=== PATIENT | male | born 1970 | race Caucasian/White ===

== ENCOUNTER 2025-01-12 23:52 | Emergency (ER) | payer BC, SELFPAY ==
[2025-01-12 23:55] VITALS: BP 140/90; PULSE 85; O2SAT 98; BMI 28.7
[2025-01-13 00:02] VITALS: BP 135/75; PULSE 82; RESP 19; TEMP 36.7; O2SAT 95
[2025-01-13 00:19] LABS: MANUAL DIFF FLAG NO
[2025-01-13 00:23] LABS: Hematocrit 42.6 % (42.0-52.0); Hemoglobin 14.5 g/dl (14.0-18.0); Imm Gran Abs Auto 0.03 X10*3/uL (0.00-0.03); Imm Gran Pct Auto 0.4 % (0.0-0.4); Lymphocytes Absolute Auto 2.2 X10*3/uL (1.2-4.9); Mean Corpuscular HGB Conc 34.0 g/dl (31.0-36.0); Mean Corpuscular Hemoglobin 28.9 pg (27.0-33.0); Mean Corpuscular Volume 85.0 fL (80.0-98.0); NRBC Abs Auto 0.000 X10*3/uL (0.0-0.012); NRBC Pct Auto 0.0 /100WBC (0.0-0.2); Platelet Count 243 X10*3/uL (160-400); Red Blood Count 5.01 X10*6/uL (4.60-5.80); White Blood Count 7.1 X10*3/uL (4.8-10.8)
[2025-01-13 00:36] LABS: Alanine Aminotransferase 43 U/L (0-40); Albumin Level 4.2 g/dL (3.5-5.0); Alkaline Phosphatase 70 U/L (39-117); Anion Gap 14 (12-20); Aspartate Amino Transferase 45 U/L (5-37); Blood Urea Nitrogen 13 mg/dL (9-16); Calcium 9.3 mg/dL (8.4-10.2); Carbon Dioxide 27 mmol/L (22-29); Chloride 103 mmol/L (96-108); Creatinine Clr Calc Pharmacy 128.5; Estimated Glomerular Filt Rate > 60; Potassium 3.7 mmol/L (3.3-5.1); Sodium 140 mmol/L (135-145); Total Protein 6.9 g/dL (6.5-8.0)
--- OUTSIDE RECORDS SUMMARY | 2025-01-13 00:50 | XMS_ITS | Clinical Summary ---
Author Organization 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 6.7 g 1 5 Active ALPRAZolam (XANAX) 0.5 mg tablet Take 1 tablet (0.5 mg total) by mouth 1 (one) time each day if needed for anxiety. Max Daily Amount: 0.5 mg 10 tablet 5 Active simvastatin (ZOCOR) 20 mg tabletIndications:M ixed hyperlipidemia TAKE 1 TABLET BY MOUTH EVERYDAY AT BEDTIME 90 tablet 1 5 Active Breo Ellipta 200-25 mcg/dose inhaler INHALE 1 PUFF INTO THE LUNGS DAILY FOR 30 DAYS. 60 each 11 5 Active Active Problems Problem Noted Date Diagnosed Date Abdominal bloating 02/19/2024 Abdominal pain 02/19/2024 Change in bowel habits 02/19/2024 Colon polyp 02/19/2024 Epigastric pain 02/19/2024 Hemangioma of liver 02/19/2024 Hemorrhoids 02/19/2024 Rectal discharge 02/19/2024 Tubular adenoma of colon 02/19/2024 Abnormal echocardiogram 02/16/2020 SOB (shortness of breath) on exertion 02/16/2020 Overview (02/19/2024): Last Assessment & Plan: Shortness of breath has improved after initiation of medicine for COPD. Most likely his SOB is related to his lung problem. The echocardiogram shows subtle abnormality but he had no symptoms with good level of exercise EKG stress test. We will repeat exercise echocardiogram in 6 months. Anxiety 12/09/2015 GERD (gastroesophageal reflux disease) 6 COPD (chronic obstructive pu lmonary disease) ([facility] V24, [facility] V28) 10/05/2015 Mixed hyperlipidemia 08/28/2012 Overview (02/19/2024): Last Assessment & Plan: His LDL was slightly on higher side and he is only on low-dose of statin. I will increase simvastatin to 20 mg daily. Backache 11/06/2006 Overview (02/19/2024): IMO update Right bundle branch block 11/06/2006 Overview (02/19/2024): incomplete right bundle branch block Encounters Date Type Department Care Team Description 12/01/2024 Telephone Outpatient Rehabilitation - [address] [phone] [place], PT 11/25/2024 2:30 PM EDT Treatment Outpatient Rehabilitation - [address] [phone] [place] Fox, PT Vertigo (Primary Dx) 11/23/2024 1:00 PM EDT Ancillary Procedure [facility] [address] [place] [address] Palpitation 11/03/2024 12:00 PM EDT Treatment Outpatient [address] [phone] [place], PT Neck muscle spasm (Primary Dx) 11/02/2024 11:30 AM EDT Evaluation [address] [phone] [place] Fox, PT Vertigo (Primary Dx); Neck muscle spasm from Last 3 Months Immunizations Immunization Administration Dates Next Due Influenza trivalent, 0.5mL, preservative free (Fluarix; FluLaval; Fluzone) ages 6mo and older (Afluria) 3 years and older 12/09/2015,01/05/2008 Pfizer SARS-CoV-2 COVID-19, mRNA, LNP-S, preservative free 07/01/2020,06/09/2020 Tdap Tetanus diptheria acell ular pertussis (Boostrix; Adacel) 7yo and older 02/09/2022,08/22/2011 Surgical History Surgery Date Site/Laterality Comments MULTIPLE TOOTH EXTRACTIONS PROCEDURE: HISTORICAL DENTAL EXTRACTION BACK SURGERY 1995 PROCEDURE: HISTORICAL BACK SURGERY; COMMENT: [id number] HERNIA REPAIR 2007 Left PROCEDURE: HISTORICAL HERNIA REPAIR/ING ESOPHAGOGASTRODUODENOSCOPY 12/05/2015 PROCEDURE: RI ESOPHAGOGASTRODUODENOSCOPY TRANSORAL DIAGNOSTIC; COMMENT: normal COLONOSCOPY 12/07/2015 PROCEDURE: HISTORICAL COLONOSCOPY; COMMENT: adenoma; repeat in 5 years COLONOSCOPY 07/05/2021 PROCEDURE: HISTORICAL COLONOSCOPY; COMMENT: polyp - removed, not retrieved ESOPHAGOGASTRODUODENOSCOPY 07/05/2021 PROCEDURE: RI EGD TRANSORAL BIOPSY SINGLE/MULTIPLE; COMMENT: normal including biopsy Medical History Medical History Date Comments Backache, unspecified 11/06/2006 DX:Backach e, unspecified Right bundle branch block 11/06/2006 DX:Rig ht bundle branch block; COMMENT: incomplete right bundle branch block COPD (chronic obstructive pu lmonary disease) ([facility] V24, [facility] V28) 10/05/2015 DX:COPD (chronic o bstructive pulmonary disease) ([facility]) GERD (gastroesophageal reflux disease) 11/25/2015 DX:GERD (gastroesophageal reflux disease) Epigastric pain DX:Epigastric pa in Abdominal pain DX:Abdominal ludwig n Abdominal bloating DX:Abdominal bloating Change in bowel habits DX:Change in bowel habits Rectal discharge DX:Rectal disch arge Tubular adenoma of colon DX:Tubu lar adenoma of colon Hemangioma of liver DX:Hemangiom a of liver Anxiety state DX:Anxiety state Depressive disorder DX:Depressiv e disorder Hyperlipidemia DX:Hyperlipidemi a Hemorrhoids DX:Hemorrhoids Colon polyp DX:Colon polyp Family History Medical History Relation Name Comments Heart attack Father at age 64 COPD Maternal Grandfather Other: heart disease Maternal Grandfather Other: heart disease Maternal Grandmother Arthritis Mother Bilateral hip r eplacements COPD Mother Heart attack Paternal Grandmother age 40- 50. Relation Name Status Comments Brother 1 Alive Brother 2 Alive Brother 3 Alive Brother 4 Alive Father Maternal Grandfather Maternal Grandmother Mother Alive Paternal Grandfather Paternal Grandmother Social History Tobacco Use Types Packs/Day Years Used Date Smoking Tobacco: Former Cigarettes Q uit: 09/20/2015 Smokeless Tobacco: Former Quit: 09/15/2015 Alcohol Use Standard Drinks/Week Comments Yes 0 (1 standard drink = 0.6 oz pur e alcohol) Sex and Gender Information Value Date Recorded Sex Assigned at Male 05/11/2024 10:30 AM EST Legal Sex Male 11:17 PM EST Gender Identity Male 05/11/2024 10:30 AM EST Sexual Orientation Straight 05/11/2024 10 :30 AM EST Obstetrics History Last Filed Vital Signs Vital Sign Reading Time Taken Comments Blood Pressure 120/84 10/05/2024 10:23 AM EDT Pulse 86 10/05/2024 10:23 AM EDT Temperature 35.9 C (96.6 F) 10/05/2024 10:23 AM EDT Respiratory Rate 16 10/05/2024 10:23 AM EDT Oxygen Saturation 96% 10/05/2024 10:23 AM EDT Inhaled Oxygen Concentration - - Weight 98.7 kg (217 lb 9.3 oz) 10/05/2024 10:23 AM EDT Height 182.9 cm (6') 10/05/2024 10:23 AM EDT Body Mass Index 29.51 10/05/2024 10:23 AM EDT Plan of Treatment Upcoming Encounters Date Type Department Care Team (Late st Contact Info) Description 03/22/2025 4:00 PM EST Office Visit Adult Medicine [facility] [address] [place] [phone] Amparo Cano NP [address] [place] [address] 07/30/2025 8:15 AM EDT Office Visit Pulmonology - [place] [address] [place] [address] Freddie Mg MD [address] [place] [phone] Health Maintenance Due Date Last Done Comments Hepatitis B Vaccines (1 of 3 - 19+ 3-dose series) 1989 Pneumococcal Vaccine: 50+ Years (1 of 2 - PCV) 1989 RSV Immunization Adult Patients (1 - Risk 50-74 years 1-dose series) 2020 Zoster Vaccines (1 of 2) 2020 HIV Screening 02/17/2022 Social Influencers of Health Screening 02/17/2022 Depression Screening 03/11/2024 COVID-19 Vaccine (3 - 2024-2 6 season) 2024 07/01/2020, 06/09/2020 Influenza Vaccine (#1) 2024 6, 01/05/2008 Colorectal Cancer Screening: Colonoscopy 07/05/2026 07/05/2021 Cholesterol Screening (Lipid Panel) 07/07/2028 07/08/2023, 07/08/2023 DTaP,Tdap,and Td Vaccines (3 - Td or Tdap) 02/10/2032 02/09/2022, 08/22/2011 Hepatitis C Screening Completed 02/09/2022 HIB Vaccines Aged Out No longer eligi ble based on patient's age to complete this topic HPV Vaccines Aged Out No longer eligi ble based on patient's age to complete this topic Hepatitis A Vaccines Aged Out No long er eligible based on patient's age to complete this topic IPV Vaccines Aged Out No longer eligi ble based on patient's age to complete this topic MMR Vaccines Aged Out No longer eligi ble based on patient's age to complete this topic Meningococcal ACWY Vaccine Aged Out N o longer eligible based on patient's age to complete this topic Meningococcal B Vaccine Aged Out No l onger eligible based on patient's age to complete this topic RSV Immunization Patients Under 20 months Aged Out No longer eligible b ased on patient's age to complete this topic Varicella Vaccines Aged Out No longer eligible based on patient's age to complete this topic Procedures Procedure Name Priority Date/Time Associated Diagnosis Comments CARDIAC HOLTER MONITOR (REPORT GENERATED IN HOUSE) Routine 11/23/2024 1:01 PM EDT Palpitation LIPID PANEL Routine 07/08/2023 HEPATITIS C SCREENING Routine 02/09/2022 COLONOSCOPY Routine 07/05/2021 from Last 3 Months or Most Recently Relevant to Health Maintenance Results * CARDIAC HOLTER MONITOR (REPORT GENERATED IN HOUSE) (11/23/2024 1:01 PM EDT) Anatomical Region Laterality Modality Cardiac Diagnost ic Narrative 11/26/2024 11:12 AM EDT [facility] DI[facility]ING DEPARTMENT [address] [place] [address] TEL: FAX: Type of test: 48 hour Holter Monitor Date of test: 11/23/24 Ordering provider: Amparo Cano NP Reason for Test: Palpitations 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 2: Heart rate range was 49- 141 bpm with an average of 83 bpm. Total time in Sinus Tachycardia was 10 hrs 13 mins. 3: Rare PACs and PVCs. 4: No pauses noted. Longest R-R 1.3 sec. 5: Diary returned with no symptoms noted. Impression: Normal sinus rhythm with an average heart rate of 83 bpm. There were prolonged periods in sinus tachycardia but no arrhythmias. us Amparo Cano NP [facility] PROCEDURE S Final Result * Lipid panel (07/08/2023) [facility] LDL/HDL Ratio 3 0 - 4 Triglycerides 139 0 - 150 mg/dL Cholesterol 183 0 - 200 mg/dL HDL 62 >=40 mg/dL LDL Cholesterol 94 0 - 100 mg/dL Blood Venous blood specimen / Unknown [facility] Provider LAB BLOOD ORDERABLES Josselin l Result * Hepatitis C Screening (02/09/2022) [facility] Hepatitis C Screening abstracted [facility] Provider HEALTH MAINTENANCE Final Result * Colonoscopy (07/05/2021) [facility] Colonoscopy abnormal, abstracted Anatomical Region Laterality Modality Other [facility] Provider HEALTH MAINTENANCE Final Result from Last 3 Months or Most Recently Relevant to Health Maintenance Insurance [facility] Care Teams Leases And Land Supervisor Relationship Specialty Start Date End Date Timbo Hanley MD [address] [place] [phone] PCP - General Internal Medicine 12/23/19
--- NOTE | 2025-01-13 01:36 | ED_ITS ---
HPI - General Adult General Chief complaint: Back Pain/Injury Stated complaint: back pain Time Seen by Provider: 01/12/25 23:58 Source: patient, RN notes reviewed and old records reviewed Mode of arrival: EMS Limitations: no limitations History of Present Illness ED Provider: Candelario AZUL narrative: 54-year-old male presents for evaluation of lower back pain. He reports a history of chronic back pain due to an injury that happened when he was 20 years old He reports having had surgeries of the time about 30 years ago. He has a history of sciatica that flares up every few years. He had some minor discomfort today while he was trying on pants to donate with did not fit him. He he reports falling asleep on the couch and a couple hours later woke up with severe back pain on the right side pain The pain does not radiate. He denies any falls or trauma. He denies any numbness or tingling pain Denies any weakness pain His pain is worse when he is walking and reports that he is barely able to walk without shuffling. He denies any difficulty urinating. In fact when he woke up he went to the bathroom before going back to his bed. However while he was standing and walking he had severe pain that caused him to feel lightheaded with nausea and he felt like he was going to pass out but did not pass out His pain is 8/10. He would not take anything for his pain today Related Data Previous Rx's ?Medication ?Instructions ?Recorded cyclobenzaprine 10 mg tablet 10 mg PO TID PRN muscle s pasm #20 01/13/25 tabs dexamethasone 4 mg tablet 4 mg PO BID #6 tabs 01/13/25 ketorolac 10 mg tablet 10 mg PO Q8H PRN pain #9 tab s 01/13/25 omeprazole 20 mg capsule,delayed 20 mg PO DAILY #14 ca ps 01/13/25 release Allergies Allergy/AdvReac Type Severity Reaction Status Date / Time Penicillins Allergy Rash Verified 01/13/25 00:08 Review of Systems 2 Constitutional: Constitutional: Denies body ache(s), Denies chills, Denies fever(s) and Denies headache(s) Eyes: Eyes: Denies blurry vision ENT: Denies vertigo, Denies dizziness, Denies headache(s) and Denies neck pain Cardiovascular: Cardiovascular: Denies chest pain, Reports lightheadedness, Denies dyspnea and Denies dyspnea on exertion Respiratory: Respiratory: Denies cough, Denies dyspnea and Denies dyspnea on exertion Gastrointestinal: Gastrointestinal: Denies abdominal pain, Denies nausea and Denies vomiting Musculoskeletal: Musculoskeletal: Reports back pain, Denies arthralgias, Denies joint swelling, Reports limited range of motion, Denies neck pain, Denies numbness, Denies radiating pain into limb, Reports stiffness and Denies tingling Integumentary/Breasts: Skin/Breast: Denies rash Neurologic: Denies vertigo, Denies dizziness, Denies headache(s), Denies numbness and Denies tingling Psychiatric: Psychiatric: Denies anxiety PMFSH Social History Social History Alcohol intake: current Alcohol intake frequency: holidays/special occasions only Alcohol type: beer Smoked in Last 30 Days: No Use of substances other than those prescribed or required for medical reasons: Yes Substance Use Type: Marijuana Substance Use Frequency: Occasionally Last Used Substance: Days (ago) Advance Directives: No Advance Directives Information Provided: Yes Physical Exam ED Vital Signs: Vital Signs - 24 hr 01/13/25 00:02 Temperature 98.1 F Pulse Rate 82 Respiratory Rate 19 Blood Pressure 135/75 Pulse Oximetry 95 Oxygen Delivery Method Room Air BMI result Body Mass Index 28.7 Const General: healthy appearing, comfortable, no acute distress, alert and awake Nutritional Appearance: well nourished Orientation/consciousness: patient oriented x3 HENMT Head: Yes normocephalic and Yes atraumatic Eyes Eyelids: Yes eyelids normal Conjunctivae: conjunctivae normal Sclerae: sclerae normal Corneas: corneas normal Pupils: Equal, round and reactive pupils present EOM: EOMs intact bilaterally Neck Neck: Yes full ROM Resp Effort & Inspection: normal respiratory effort, able to speak in complete sentences and not labored Cardio Rate: regular rate Rhythm: regular rhythm GI Inspection: No distended Palpation (GI): Soft to palpation, not firm, nontender, no guarding and not rigid Back/Spine/Pelvis Other: The patient does not have any vertebral tenderness to the lumbar or lumbosacral region. He has tenderness just lateral to the right lumbar vertebrae. Straight leg raise negative bilaterally. Skin General skin exam: elasticity normal Neuro General: patient oriented x3 Cranial nerves: Yes Equal, round and reactive pupils present and Yes Bilaterally intact EOM present Cognition (Neuro): normal cognition Motor exam (neuro): 5/5 motor strength present throughout Deep tendon reflexes (DTR's): Left brachioradialis reflex intensity grade: 1+ and Right patellar reflex intensity grade: 1+ Coordination: [id number] test normal Extrem Other: Moving all extremities well without any obvious deformities Medications Administered Discontinued Medications Generic Name Dose Route Start Last Admin Trade Name Lionelq PRN Reason Stop Dose Admin Dexamethasone Sodium Phosphate 4 mg 01/13/25 00:59 01/13/25 01:07 Dexamethasone Sod Phosphate 4 Mg/Ml Vial IVPUSH 01/13/25 01:00 4 mg ONCE ONE Administration Ketorolac Tromethamine 30 mg 01/13/25 00:59 01/13/25 01:07 Ketorolac Tromethamine 30 Mg/Ml Vial IVPUSH 01/13/25 01:00 30 mg ONCE ONE Administration Medical Decision Making Medical Decision Making [facility] Narrative: 54-year-old male presents for evaluation of acute on chronic back pain. He reports having gradually worsening back pain today. His pain was worse after sleeping on it for a few hours. He is able to ambulate but has pain while doing so. He has no weakness, no paresthesias, numbness or tingling. He is able to urinate no bowel movements without any difficulty. I have a very low suspicion for cauda equina syndrome. There was no trauma to warrant x-ray imaging. We will treat the patient with Toradol and dexamethasone and re-evaluate. He has no symptoms, his pain is not consistent with obstructive uropathy. He has no abdominal pain or tenderness on exam to suggest a GI cause of his pain. Differential Diagnosis Differential Diagnoses: The differential diagnosis associated with the presentation includes Radiculopathy Sciatica Acute and chronic back pain Disc herniation Lab Data [facility] Lab Attestation statement: I reviewed the patient's lab results. No leukocytosis or significant anemia. Normal platelet count. No electrolyte abnormalities warranting intervention 01/13/25 00:14 01/13/25 00:14 Labs: Lab Results 01/13/25 Range/Units 00:14 WBC 7.1 (4.8-10.8) X10*3/uL RBC 5.01 (4.60-5.80) X10*6/uL Hgb 14.5 (14.0-18.0) g/dl Hct 42.6 (42.0-52.0) % MCV 85.0 (80.0-98.0) fL MCH 28.9 (27.0-33.0) pg MCHC 34.0 (31.0-36.0) g/dl RDW 12.2 (11.0-16.0) % Plt Count 243 (160-400) X10*3/uL MPV 9.9 (9.4-12.4) fL Immature Gran % (Auto) 0.4 (0.0-0.4) % Neut % (Auto) 57.4 (45-73) % Lymph % (Auto) 30.7 (20-40) % Spencer % (Auto) 8.1 (2-11) % Eos % (Auto) 2.7 (0-4) % Baso % (Auto) 0.7 (0-2) % Lymph # (Auto) 2.2 (1.2-4.9) X10*3/uL Spencer # (Auto) 0.6 (0.1-1.2) X10*3/uL Eos # (Auto) 0.2 (0.0-0.4) X10*3/uL Baso # (Auto) 0.1 (0.0-0.2) X10*3/uL Abs Immat Gran (auto) 0.03 (0.00-0.03) X10*3/uL Absolute Neuts (auto) 4.1 (2.0-8.3) x10*3/uL Absolute Nucleated RBC 0.000 (0.0-0.012) X10*3/uL Nucleated RBC % (auto) 0.0 (0.0-0.2) /100WBC Sodium 140 (135-145) mmol/L Potassium 3.7 (3.3-5.1) mmol/L Chloride 103 (96-108) mmol/L Carbon Dioxide 27 (22-29) mmol/L Anion Gap 14 (12-20) BUN 13 (9-16) mg/dL Creatinine 0.79 (0.5-1.4) mg/dL Estim Creat Clear Calc 128.5 Estimated GFR > 60 Random Glucose 105 (60-115) mg/dL Calcium 9.3 (8.4-10.2) mg/dL Total Bilirubin 0.3 (0.0-1.0) mg/dL AST 45 H (5-37) U/L ALT 43 H (0-40) U/L Alkaline Phosphatase 70 (39-117) U/L Total Protein 6.9 (6.5-8.0) g/dL Albumin 4.2 (3.5-5.0) g/dL Tests considered The following testing was considered but not selected: Consider x-ray imaging of the lumbar spine but there was no trauma to warrant emergent imaging. No warning signs of cauda equina to warrant emergent MRI Discharge Plan Discharge Clinical Impression: Acute exacerbation of chronic low back pain Patient Disposition: Home, Self-Care Instructions: Acute Low Back Pain (ED) Additional Instructions: Your labs were reassuring. Your exam is very consistent with musculoskeletal back pain and possibly a disc herniation or pinched nerve. You would likely benefit from an outpatient MRI. In the meantime, you may use Toradol as directed for pain. You may take dexamethasone twice daily for 3 days pain Take these medications with food I recommend taking omeprazole daily while taking these medications to prevent GERD or stomach ulcers You may use cyclobenzaprine as needed for muscle spasms. This would be best used at bedtime as it will make you drowsy, do not drink alcohol or drive after taking it Prescriptions: New cyclobenzaprine 10 mg tablet 10 mg PO TID PRN (Reason: muscle spasm) Qty: 20 0RF dexamethasone 4 mg tablet 4 mg PO BID Qty: 6 0RF ketorolac 10 mg tablet 10 mg PO Q8H PRN (Reason: pain) Qty: 9 0RF Rx Instructions: maximum total duration of 5 days from all oral, intranasal, or parenteral formulations omeprazole 20 mg capsule,delayed release(DR/EC) 20 mg PO DAILY Qty: 14 0RF Print Language: Arabic
[2025-01-13 01:54] VITALS: BP 136/83; PULSE 79; RESP 18; TEMP 36.9; O2SAT 95
[2025-01-13 01:59] VITALS: BP 136/83; PULSE 79; RESP 18; TEMP 36.9; O2SAT 95
== END 2025-01-13 02:00 | disposition home or self-care (01) ==
PROVIDERS: Emergency Provider Emergency Medicine; PCP Internal Medicine
DX: M54.50 Low back pain, unspecified (principal); G89.29 Other chronic pain
CPT/HCPCS: 36415; 80053; 85025; 96374; 96375; 99284; J1100; J1885